=== PATIENT | female | born 1965 | race Caucasian/White ===

== ENCOUNTER → 2016-11-04 | Outpatient (CLI) | payer OTHER ==
[~2016-11-04] MED LIST: ATOR10TA PO; BENZ1CAP34 PO; DIFL150T PO; PROM6.257 PO; ZITH250T PO
[2016-11-04 12:40] LABS: TOTAL BILIRUBIN ADULT 0.3 MG/DL (0.2-1.0)
[2016-11-04 12:45] LABS: INDIRECT BILIRUBIN 0.2 MG/DL (0.0-0.8)
== END ==
LOC: CLAB 11:33
PROVIDERS: ATTEND Family Medicine
DX: Z00.00 Encounter for general adult medical examination without abnormal findings (principal)
CPT/HCPCS: 36415; 80076

== ENCOUNTER → 2017-01-07 | Outpatient (CLI) | payer OTHER ==
[2017-01-07 09:37] LABS: GLUCOSE,FASTING 104 MG/DL (74-99); HDL CHOLESTEROL 62.5 MG/DL (40.0-60.0); LDL CHOLESTEROL 185 MG/DL (0-99)
[2017-01-07 12:04] LABS: HEMOGLOBIN A1a 0.9 %; HEMOGLOBIN A1b 0.7 %; HEMOGLOBIN F 1.1 %; HEMOGLOBIN LA1C 2.2 %
[2017-01-10 13:52] LABS: IGF ZSCORE FEMALE -0.1 SD (-2.0 - +2.0); IGF ZSCORE MALE ND (()); IGF-1 GC/MS 137 ng/mL (52-328)
== END ==
LOC: CLAB 08:51
DX: E34.9 Endocrine disorder, unspecified (principal); R63.5 Abnormal weight gain; E27.49 Other adrenocortical insufficiency; R74.0 Nonspecific elevation of levels of transaminase and lactic acid dehydrogenase [LDH]; R79.82 Elevated C-reactive protein (CRP); R53.83 Other fatigue; E88.81 Metabolic syndrome and other insulin resistance; E23.6 Other disorders of pituitary gland; E28.39 Other primary ovarian failure; Z80.3 Family history of malignant neoplasm of breast; Z82.49 Family history of ischemic heart disease and other diseases of the circulatory system
CPT/HCPCS: 36415; 80061; 82306; 82947; 83036; 83525; 84140; 84305; 86141

== ENCOUNTER → 2017-09-30 | Outpatient (CLI) | payer OTHER ==
[2017-09-30 10:02] LABS: GLUCOSE,FASTING 99 MG/DL (74-99)
[2017-09-30 10:16] LABS: FOLLICLE STIMULATING HORMONE 57.7 mIU/mL; FREE T3 3.35 PG/ML (2.18-3.98); FREE T4 1.04 NG/DL (0.76-1.46)
[2017-09-30 12:14] LABS: HEMOGLOBIN A1a 1.1 %; HEMOGLOBIN A1b 0.8 %; HEMOGLOBIN Ao 85.3 %; HEMOGLOBIN LA1C 2.1 %; HEMOGLOBIN P3 3.7 %
[2017-10-02 15:53] LABS: IGF ZSCORE FEMALE -0.1 SD (-2.0 - +2.0); IGF ZSCORE MALE ND (()); IGF-1 GC/MS 137 ng/mL (50-317)
== END ==
LOC: CLAB 08:45
DX: R53.83 Other fatigue (principal); R63.5 Abnormal weight gain; E27.49 Other adrenocortical insufficiency; R74.0 Nonspecific elevation of levels of transaminase and lactic acid dehydrogenase [LDH]; R79.82 Elevated C-reactive protein (CRP); E28.39 Other primary ovarian failure; Z80.3 Family history of malignant neoplasm of breast; Z82.49 Family history of ischemic heart disease and other diseases of the circulatory system
CPT/HCPCS: 36415; 82947; 83001; 83036; 83525; 84140; 84305; 84439; 84443; 84481; 86141

== ENCOUNTER → 2018-01-13 | Outpatient (CLI) | payer OTHER | LOC: CLAB 09:47 | DX: E23.6 Other disorders of pituitary gland (principal); E27.49 Other adrenocortical insufficiency; E28.39 Other primary ovarian failure; E34.9 Endocrine disorder, unspecified; E88.81 Metabolic syndrome and other insulin resistance; R53.83 Other fatigue; R63.5 Abnormal weight gain; R74.0 Nonspecific elevation of levels of transaminase and lactic acid dehydrogenase [LDH]; R79.82 Elevated C-reactive protein (CRP); Z80.3 Family history of malignant neoplasm of breast; Z82.49 Family history of ischemic heart disease and other diseases of the circulatory system | CPT/HCPCS: 36415; 84140 ==